=== PATIENT | female | born 1965 | race Caucasian/White ===

== ENCOUNTER 2017-09-22 07:58 | Emergency (ER) | payer MEDICAID ==
[~2017-09-22] VITALS: Ht 154.9 cm; Wt 54.4 kg
[2017-09-22] MEDS ORDERED: ALPR2TAB7 PO (08:27)
[2017-09-22] MEDS ORDERED: HYDR-548 PO (08:27)
[2017-09-22] MEDS ORDERED: HYDROCODONE/APAP 10-325 MG TABLET PO ONE (08:38)
--- NOTE | 2017-09-22 08:57 | NUR ---
Patient discharged to home in stable conditon. Written and verbal after care instructions given with RX. Patient verbalizes understanding of instructions. Pt aware to not drive while taking RX.
[2017-09-22] MEDS ORDERED: HYDROCODONE/APAP 10-325 MG TABLET ONE (09:10)
== END 2017-09-22 08:59 | disposition home or self-care (01) ==
LOC: ER 07:58
DX: G89.29 Other chronic pain (principal); M54.5 Low back pain; Z88.6 Allergy status to analgesic agent
CPT/HCPCS: 99283; A4663